=== PATIENT | female | born 1945 | race Caucasian/White ===

== ENCOUNTER → 2018-11-24 | Outpatient (CLI) | payer MEDICARE ==
--- NOTE | 2018-11-24 21:52 | XR ---
EXAMINATION TYPE: XR Hip Complete LT DATE OF EXAM: 11/24/2018 COMPARISON: NONE HISTORY: 73 year-old female left hip pain TECHNIQUE: 2 views FINDINGS: Mild degenerative spurring and axial narrowing of joint space at the left hip. Bony hyperostosis at t he greater trochanter suggests chronic insertional gluteal tendinopathy. No acute fracture, subluxati on, or dislocation seen. IMPRESSION: Mild degenerative change at the left hip. Chronic insertional gluteal tendinopathy. No acute osseous abnormality seen.
== END | disposition home or self-care (01) ==
LOC: RADXRYALE 14:33
PROVIDERS: ATTEND Family Medicine
DX: M16.12 Unilateral primary osteoarthritis, left hip (principal); M67.854 Other specified disorders of tendon, left hip
CPT/HCPCS: 73502

== ENCOUNTER 2019-01-10 21:11 | Emergency (ER) | payer MEDICARE ==
[2019-01-10] MEDS ORDERED: SODIUM CHLORIDE 0.9% 500 ML 500 ML IV STA (21:37)
[2019-01-10] MEDS ORDERED: ENALAPRILAT 1.25 MG/ML 1 ML VIAL IVP STA (21:38)
--- NOTE | 2019-01-10 21:40 | ED ---
Headache HPI - General Chief Complaint: Headache Stated Complaint: HEADACHE Time Seen by Provider: 01/10/19 21:18 Mode of arrival: EMS Limitations: no limitations - History of Present Illness MD Complaint: headache -: hour(s) Onset Description: gradual Location: right, left, frontal Severity: moderate Quality: other (Like a hot feeling) Consistency: constant Improves With: nothing Worsens With: none Context: occurred at rest Treatments Prior to Arrival: Ibuprofen - Related Data Home Medications Medication Instructions Recorded Confirmed ALPRAZolam [Xanax] 0.25 mg PO DAILY PRN 01/10/19 01/10/19 Aspirin 81 mg PO DAILY 01/10/19 01/10/19 Ibuprofen [Motrin Ib] 200 mg PO Q6H PRN 01/10/19 01/10/19 Allergies Allergy/AdvReac Type Severity Reaction Status Date / Time Beta-Blockers Allergy Chest Pain Verified 01/10/19 21:42 (Beta-Adrenergic Bloc codeine Allergy Anaphylaxis Verified 01/10/19 21:42 Opioids - Morphine Analogues Allergy Anaphylaxis Verified 01/10/19 21:42 tramadol Allergy Anaphylaxis Verified 01/10/19 21:42 Antihistamines - Ethanolamine AdvReac Hallucinati Verified 01/10/19 21:42 ons diphenhydramine AdvReac Hallucinati Verified 01/10/19 21:42 [From Benadryl] ons Review of Systems ROS Statement: Those systems with pertinent positive or pertinent negative responses have been documented in the HPI. ROS Other: All systems not noted in ROS Statement are negative. Constitutional: Reports: other (Patient states she felt hot did not take her temperature) Eyes: Denies: eye pain, vision change ENT: Denies: ear pain, hearing loss, congestion Respiratory: Denies: cough, dyspnea Cardiovascular: Denies: chest pain, palpitations Gastrointestinal: Denies: abdominal pain, nausea, vomiting Genitourinary: Denies: dysuria, hematuria Musculoskeletal: Denies: back pain Skin: Denies: rash Neurological: Denies: headache, weakness, numbness Past Medical History Past Medical History: Atrial Fibrillation, Thyroid Disorder Additional Past Medical History / Comment(s): neuropathy, arthritis, squamous carcinoma History of Any Multi-Drug Resistant Organisms: None Reported Past Surgical History: Section, Hysterectomy, Orthopedic Surgery, Tonsillectomy Additional Past Surgical History / Comment(s): uterine polyp, (L) thyroidectomy, double mastectomy, (R) lobular, (L) ductal, bilateral eye implant for radiation. Past Psychological History: Anxiety Smoking Status: Never smoker Past Alcohol Use History: None Reported Past Drug Use History: None Reported General Exam Limitations: no limitations General appearance: alert, in no apparent distress Head exam: Present: atraumatic, normocephalic Eye exam: Present: normal appearance, PERRL, EOMI. Absent: scleral icterus, conjunctival injection, nystagmus ENT exam: Present: normal oropharynx, mucous membranes moist Neck exam: Present: normal inspection, full ROM. Absent: meningismus Respiratory exam: Present: normal lung sounds bilaterally. Absent: respiratory distress, wheezes, rales, rhonchi, stridor Cardiovascular Exam: Present: regular rate, normal rhythm, normal heart sounds. Absent: systolic murmur, diastolic murmur, rubs, gallop GI/Abdominal exam: Present: soft. Absent: tenderness, guarding, rebound, rigid Extremities exam: Present: normal inspection, normal capillary refill. Absent: pedal edema, calf tenderness Back exam: Present: normal inspection. Absent: CVA tenderness (R), CVA t enderness (L), vertebral tenderness Neurological exam: Present: alert, oriented X3, CN II-XII intact. Absent: motor sensory deficit Skin exam: Present: warm, dry, intact, normal color. Absent: rash Course Vital Signs 01/10/19 01/10/19 01/10/19 21:21 22:45 23:28 Temperature 99.5 F Pulse Rate 100 Respiratory 18 16 16 Rate Blood Pressure 214/100 205/93 172/65 O2 Sat by Pulse 94 L Oximetry 01/11/19 00:41 Temperature 98.2 F Pulse Rate 92 Respiratory 18 Rate Blood Pressure 134/64 O2 Sat by Pulse 98 Oximetry Medical Decision Making - Medical Decision Making Patient 73-year-old woman with headache and hypertension. She is feeling better after medication and her blood pressure has improved. The patient does not have any tenderness over the temporal artery. Discussed appropriate further care and follow-up for headaches as well as return parameters. - Lab Data Result diagrams: 01/10/19 21:40 01/10/19 21:40 Lab Results 01/10/19 01/10/19 Range/Units 21:40 21:40 WBC 11.4 H (3.8-10.6) k/uL RBC 4.98 (3.80-5.40) m/uL Hgb 14.3 (11.4-16.0) gm/dL Hct 43.2 (34.0-46.0) % MCV 86.9 (80.0-100.0) fL MCH 28.8 (25.0-35.0) pg MCHC 33.2 (31.0-37.0) g/dL RDW 13.9 (11.5-15.5) % Plt Count 154 (150-450) k/uL Neutrophils % 79 % Lymphocytes % 12 % Monocytes % 7 % Eosinophils % 1 % Basophils % 1 % Neutrophils # 8.9 H (1.3-7.7) k/uL Lymphocytes # 1.4 (1.0-4.8) k/uL Monocytes # 0.8 (0-1.0) k/uL Eosinophils # 0.1 (0-0.7) k/uL Basophils # 0.1 (0-0.2) k/uL Sodium 140 (137-145) mmol/L Potassium 3.7 (3.5-5.1) mmol/L Chloride 105 (98-107) mmol/L Carbon Dioxide 23 (22-30) mmol/L Anion Gap 12 mmol/L BUN 16 (7-17) mg/dL Creatinine 0.61 (0.52-1.04) mg/dL Est GFR (CKD-EPI)AfAm >90 (>60 ml/min/1.73 sqM) Est GFR (CKD-EPI)NonAf >90 (>60 ml/min/1.73 sqM) Glucose 184 H (74-99) mg/dL Calcium 9.6 (8.4-10.2) mg/dL Total Bilirubin 0.8 (0.2-1.3) mg/dL AST 45 H (14-36) U/L ALT 48 (9-52) U/L Alkaline Phosphatase 110 (38-126) U/L C-Reactive Protein 48.3 H (<10.0) mg/L Total Protein 7.4 (6.3-8.2) g/dL Albumin 4.3 (3.5-5.0) g/dL - EKG Data -: EKG Interpreted by Fl EKG shows normal: sinus rhythm (With PVC, rate 96 bpm), intervals (KY interval 232 ms, consistent with first-degree AV block. QRS duration 156 ms, consistent with the bundle branch block.), QRS complexes (Right bundle-branch block. Left anterior fascicular block.) Rate: normal (Rate 96 bpm) Interpretation: LVH Disposition Clinical Impression: Headache, Hypertension Disposition: HOME SELF-CARE Condition: Fair Instructions (If sedation given, give patient instructions): Acute Headache (ED), Hypertension (ED) Is patient prescribed a controlled substance at d/c from ED?: No Referrals: Floyd Grossman DO [Primary Care Provider] - 1-2 days
[2019-01-10] MEDS ORDERED: ACETAMINOPHEN TAB 325 MG TAB PO STA (21:45)
[2019-01-10 22:14] LABS: ALT 48 U/L (9-52); AST 45 U/L (14-36); African American GFR (CKD) >90 (>60 ml/min/1.73 sqM); Albumin 4.3 g/dL (3.5-5.0); Alkaline Phosphatase 110 U/L (38-126); Anion Gap 12 mmol/L; Blood Urea Nitrogen 16 mg/dL (7-17); C Reactive Protein 48.3 mg/L (<10.0); Calcium 9.6 mg/dL (8.4-10.2); Carbon Dioxide 23 mmol/L (22-30); Chloride 105 mmol/L (98-107); Glucose 184 mg/dL (74-99); Potassium 3.7 mmol/L (3.5-5.1); Sodium 140 mmol/L (137-145); Total Bilirubin 0.8 mg/dL (0.2-1.3); Total Protein 7.4 g/dL (6.3-8.2)
[2019-01-10] MEDS ORDERED: cloNIDine HCL 0.2 MG TAB PO STA (22:48)
--- NOTE | 2019-01-10 23:42 | CT ---
EXAM: CT Head Without Intravenous Contrast CLINICAL HISTORY: hypertension Pain TECHNIQUE: Axial computed tomography images of the head/brain without intravenous contrast. CTDI is 49.27 mGy and DLP is 1158.4 mGy-cm. This CT exam was performed using one or more of the following dose reduction techniques: automated exposure control, adjustment of the mA and/or kV according to patient size, and/or use of iterative reconstruction technique. Coronal and sagittal reconstructions are performed COMPARISON: No relevant prior studies available. FINDINGS: Brain: Moderate age-related generalized brain volume loss. No hemorrhage. No significant white matter disease. Ventricles: Unremarkable. No ventriculomegaly. Bones/joints: Unremarkable. No acute fracture. Soft tissues: Unremarkable. Sinuses: Unremarkable as visualized. No acute sinusitis. Mastoid air cells: Unremarkable as visualized. No mastoid effusion. Orbits: Bilateral cataract surgeries. IMPRESSION: No acute intracranial findings.
[2019-01-11 00:02] LABS: Basophils # (A) 0.1 k/uL (0-0.2); Basophils % (A) 1 %; Eosinophils # (A) 0.1 k/uL (0-0.7); Eosinophils % (A) 1 %; HCT 43.2 % (34.0-46.0); HGB 14.3 gm/dL (11.4-16.0); Lymphocytes # (A) 1.4 k/uL (1.0-4.8); Lymphocytes % (A) 12 %; MCH 28.8 pg (25.0-35.0); MCHC 33.2 g/dL (31.0-37.0); MCV 86.9 fL (80.0-100.0); Monocytes # (A) 0.8 k/uL (0-1.0); Monocytes % (A) 7 %; Neutrophils # (A) 8.9 k/uL (1.3-7.7); Neutrophils % (A) 79 %; Platelet Count 154 k/uL (150-450); RBC 4.98 m/uL (3.80-5.40); RDW 13.9 % (11.5-15.5); WBC 11.4 k/uL (3.8-10.6)
[2019-01-11 00:42] VITALS: BP 134/64; PULSE 92; RESP 18; TEMP 98.2
== END 2019-01-11 00:48 | disposition home or self-care (01) ==
LOC: EC 21:11
DX: I10 Essential (primary) hypertension (principal); R51 Headache; F41.9 Anxiety disorder, unspecified; Z79.82 Long term (current) use of aspirin; Z88.5 Allergy status to narcotic agent; Z88.8 Allergy status to other drugs, medicaments and biological substances; Z90.13 Acquired absence of bilateral breasts and nipples; Z85.828 Personal history of other malignant neoplasm of skin
CPT/HCPCS: 36415; 70450; 80053; 85025; 86140; 93005; 96374; 99285